=== PATIENT | female | born 1995 | race Two or more races ===

== ENCOUNTER 2019-04-17 03:14 | Emergency (ER) | payer OTHER ==
[~2019-04-17] VITALS: Ht 167.6 cm; Wt 84.0 kg
[2019-04-17 06:42] VITALS: BP 99/54
== END 2019-04-17 07:25 | disposition home or self-care (01) ==
LOC: EDBD 03:14 → ED 05:31
DX: F10.120 Alcohol abuse with intoxication, uncomplicated (principal); G31.2 Degeneration of nervous system due to alcohol
CPT/HCPCS: 36415; 80053; 80307; 84703; 85025; 96374; 99283; J2405